=== PATIENT | male | born 2000 | race Caucasian/White ===

== ENCOUNTER 2023-11-27 07:53 | Outpatient (OUT) | payer OTHER, SELFPAY ==
--- NOTE | 2023-11-27 08:30 | NM_ITS ---
The [address] [address] Patient Name: CLAUDIA GARCIA MRN: [id number] date: 2000 Sex: M Assigned Patient Location: [place] Current Patient Location: [place] Accession/Order Number: [id number] Exam Date: 11/27/2023 08:15 Report Date: 11/27/2023 12:07 At the request of: THOR LIN Procedure: MI hepatobiliary w pharm EXAMINATION: MI hepatobiliary w pharm HISTORY: EPIGASTRIC ABDOMINAL PAIN, NAUSEA, VOMITING COMPARISON: No relevant comparison available. TECHNIQUE: Radionuclide hepatobiliary imaging was performed after intravenous injection of 4.8 mCi Tc-99m YANICK derivative with sequential acquisitions every 1 minute for one hour. Hepatobiliary imaging with gallbladder ejection fraction analysis was then performed with sequential imaging every 1 minute for 60 minutes after the patient drank 8 ounces of ensure plus. FINDINGS: LIVER: Normal, prompt and uniform radiotracer uptake and clearing. BILIARY DUCTS: Normal radioisotopic biliary excretion. GALLBLADDER: Normal with no evidence of cystic duct obstruction. INTESTINE: Normal with no evidence of common biliary ductal obstruction. EJECTION FRACTION: 41 % within 60 minutes. (Normal EF > 38%). OTHER: Negative. MI/MI hepatobiliary w pharm IMPRESSION: Normal hepatobiliary scan Normal gallbladder ejection fraction of 41% Electronically authenticated by: MAHSA NIXON Date: 11/27/2023 12:07
== END 2023-11-27 07:54 | disposition home or self-care (01) ==
LOC: NM 07:57
PROVIDERS: PCP Internal Medicine; Visit Provider Internal Medicine
DX: R10.13 Epigastric pain (principal); R11.2 Nausea with vomiting, unspecified
CPT/HCPCS: 78227; A9537